=== PATIENT | male | born 1975 | race African-American/Black ===

== ENCOUNTER 2017-01-10 17:15 | Emergency (ER) | payer BC, OTHER ==
--- NOTE | 2017-01-10 18:25 | EDM.PDOC ---
ED HPI RENAL/ - General Chief Complaint: Genitourinary Problem Stated Complaint: UNKNOWN Time Seen by Provider: 01/10/17 18:25 Source of Information: Reports: Patient History Limitations: Reports: No limitations - History of Present Illness INITIAL COMMENTS - FREE TEXT/NARRATIVE: History of present illness: [41-year-old male presenting with complaints and concerns of discomfort with urination and suspicion that he has Trichomonas area patient requesting to be tested for same] Review of systems: As per history of present illness and below otherwise all systems reviewed and negative. Past medical history: As per history of present illness and as reviewed below otherwise noncontributory. Surgical history: As per history of present illness and as reviewed below otherwise noncontributory. Social history: No reported history of drug or alcohol abuse. Family history: As per history of present illness and as reviewed below otherwise noncontributory. Physical exam: HEENT: Atraumatic, normocephalic, pupils reactive, negative for conjunctival pallor or scleral icterus, mucous membranes moist, throat clear, neck supple, nontender, trachea midline. Lungs: Clear to auscultation, breath sounds equal bilaterally, chest nontender. Heart: S1S2, regular, negative for clicks, rubs, or JVD. Abdomen: Soft, nondistended, nontender. Negative for masses or hepatosplenomegaly. Negative for costovertebral tenderness. Pelvis: Stable nontender. Genitourinary: Deferred. Rectal: Deferred. Extremities: Atraumatic, negative for cords or calf pain. Neurovascular unremarkable. Neuro: Awake, alert, oriented. Cranial nerves II through XII unremarkable. Cerebellum unremarkable. Motor and sensory unremarkable throughout. Exam nonfocal. Global assessment was benign save description of some burning and discharge from penis. Diagnostics: [UA both clean and dirty] Therapeutics: [2 g Zithromax] Impression: [Partner with positive trich treated and apparently] Plan: [Treated here followup with PCP] Definitive disposition and diagnosis as appropriate pending reevaluation and review of above. - Related Data Allergies/ADRs: Allergies Allergy/AdvReac Type Severity Reaction Status Date / Time No Known Allergies Allergy Verified 01/10/17 18:06 Home Meds: Home Meds Naproxen [Naprosyn] 1 tab PO DAILY 01/10/17 [History] Past Medical History - Past Health History Medical/Surgical History: Denies Medical/Surgical History Cardiovascular History: Reports: Other (see below) Other Cardiovascular History: "fluid on heart" - Infectious Disease History Infectious Disease History: Reports: Chicken pox Social & Family History - Family History Family Medical History: Noncontributory - Tobacco Use Smoking Status *Q: Current Every Day Smoker Years of Tobacco use: 10 Packs/Tins Daily: 0.5 - Recreational Drug Use Recreational Drug Use: No ED ROS GENERAL - Review of Systems Review Of Systems: See Below (See history of present illness) ED EXAM, RENAL/ - Physical Exam Exam: See Below (History of present illness) Course - Vital Signs Last Recorded V/S: Last Vital Signs Temp 37.1 C 01/10/17 18:04 Pulse 92 01/10/17 18:04 Resp 18 01/10/17 18:04 BP 131/80 01/10/17 18:04 Pulse Ox 99 01/10/17 18:04 - Orders/Labs/Meds Orders: Active Orders 24 hr Category Date Time Status CHLAMYDIA TRACHOMATIS/GC AMPLF Stat Lab 01/10/17 18:35 Received UA W/MICROSCOPIC [URIN] Stat Lab 01/10/17 17:44 Ordered Azithromycin [Zithromax] Med 01/10/17 21:15 Once 2,000 mg PO ONETIME ONE Departure - Departure Time of Disposition: 21:08 Disposition: Home, Self-Care 01 Condition: good Clinical Impression: Exposure to STD Forms: ED Department Discharge Additional Instructions: The following information is given to patients seen in the emergency department who are being discharged to home. This information is to outline your options for follow-up care. We provide all patients seen in our emergency department with a follow-up referral. The need for follow-up, as well as the timing and circumstances, are variable depending upon the specifics of your emergency department visit. If you don't have a primary care physician on staff, we will provide you with a referral. We always advise you to contact your personal physician following an emergency department visit to inform them of the circumstance of the visit and for follow-up with them and/or the need for any referrals to a consulting specialist. The emergency department will also refer you to a specialist when appropriate. This referral assures that you have the opportunity for follow-up care with a specialist. All of these measure are taken in an effort to provide you with optimal care, which includes your follow-up. Under all circumstances we always encourage you to contact your private physician who remains a resource for coordinating your care. When calling for follow-up care, please make the office aware that this follow-up is from your recent emergency room visit. If for any reason you are refused follow-up, please contact the [facility] Emergency Department at and asked to speak to the emergency department charge nurse. Followup with PCP 1-2 days Return to ED as needed as discussed - My Orders Last 24 Hours: My Active Orders 01/10/17 17:44 UA W/MICROSCOPIC [URIN] Stat 01/10/17 18:35 CHLAMYDIA TRACHOMATIS/GC AMPLF Stat 01/10/17 21:15 Azithromycin [Zithromax] 2,000 mg PO ONETIME ONE - Assessment/Plan Last 24 Hours: My Active Orders 01/10/17 17:44 UA W/MICROSCOPIC [URIN] Stat 01/10/17 18:35 CHLAMYDIA TRACHOMATIS/GC AMPLF Stat 01/10/17 21:15 Azithromycin [Zithromax] 2,000 mg PO ONETIME ONE
[2017-01-10] MEDS ORDERED: Azithromycin 250 MG Tab PO STA (21:13)
[2017-01-10] MEDS ORDERED: Azithromycin 250 MG Tab PO ONE (21:15)
[2017-01-10 21:26] VITALS: BP 139/83
== END 2017-01-10 21:22 | disposition home or self-care (01) ==
LOC: MW.ED 17:15 → MERGE 17:15 → MW.ED 21:22
DX: Z20.2 Contact with and (suspected) exposure to infections with a predominantly sexual mode of transmission (principal); Z79.899 Other long term (current) drug therapy; F17.210 Nicotine dependence, cigarettes, uncomplicated
CPT/HCPCS: 81001; 87491; 87591; 99283; A9270

== ENCOUNTER 2017-03-13 06:09 | Emergency (ER) | payer BC ==
--- NOTE | 2017-03-13 07:07 | EDM.PDOC ---
ED HPI GENERAL MEDICAL PROBLEM - General Chief Complaint: Back Pain or Injury Stated Complaint: BACK PAIN Time Seen by Provider: 03/13/17 07:03 Source of Information: Reports: Patient - History of Present Illness INITIAL COMMENTS - FREE TEXT/NARRATIVE: HISTORY AND PHYSICAL: History of present illness: [] Patient was with low back pain. 7?10 and nonradiating, pain noted on awakening he states that he feels he may have slept wrong He has a history of paraspinous muscle spasm in the past is not dealt with this for nearly a year he does not attribute any new injury or heavy lifting No fever nausea vomiting chills sweats no footdrop or saddle anesthesia bowel or urine symptoms Review of systems: As per history of present illness and below otherwise all systems reviewed and negative. Past medical history: As per history of present illness and as reviewed below otherwise noncontributory. Surgical history: As per history of present illness and as reviewed below otherwise noncontributory. Social history: No reported history of drug or alcohol abuse. Family history: As per history of present illness and as reviewed below otherwise noncontributory. Physical exam: HEENT: Atraumatic, normocephalic, pupils reactive, negative for conjunctival pallor or scleral icterus, mucous membranes moist, throat clear, neck supple, nontender, trachea midline. Lungs: Clear to auscultation, breath sounds equal bilaterally, chest nontender. Heart: S1S2, regular, negative for clicks, rubs, or JVD. Abdomen: Soft, nondistended, nontender. Negative for masses or hepatosplenomegaly. Negative for costovertebral tenderness. Pelvis: Stable nontender. Genitourinary: Deferred. Rectal: Deferred. Extremities: Atraumatic, negative for cords or calf pain. Neurovascular unremarkable. Her leg raise to 30 without radiculopathy Neuro: Awake, alert, oriented. Cranial nerves II through XII unremarkable. Cerebellum unremarkable. Motor and sensory unremarkable throughout. Exam nonfocal. No footdrop or saddle anesthesia Diagnostics: [] Lumbar spine 2-3 Therapeutics: [] Toradol 60 IM Cataflam Flexeril Impression: [] Back pain Paraspinous muscle spasm Definitive disposition and diagnosis as appropriate pending reevaluation and review of above. Left Low Back Pain Score (Numeric/FACES): 8 - Related Data Allergies Allergy/AdvReac Type Severity Reaction Status Date / Time No Known Allergies Allergy Verified 03/13/17 06:30 Home Meds: Home Meds . [No Known Home Meds] 03/13/17 [History] Past Medical History - Past Health History Medical/Surgical History: Denies Medical/Surgical History HEENT History: Reports: None Cardiovascular History: Reports: Hypertension, Other (See Below) Other Cardiovascular History: "fluid on heart" Respiratory History: Reports: None Gastrointestinal History: Reports: None Genitourinary History: Reports: None Musculoskeletal History: Reports: Back Pain, Chronic Neurological History: Reports: None Psychiatric History: Reports: None Endocrine/Metabolic History: Reports: None Hematologic History: Reports: None Immunologic History: Reports: None Oncologic (Cancer) History: Reports: None Dermatologic History: Reports: None - Infectious Disease History Infectious Disease History: Reports: Chicken Pox Other Infectious Disease History: childhood - Past Surgical History Head Surgeries/Procedures: Reports: None Social & Family History - Family History Family Medical History: Noncontributory Cardiac: Reports: Hypertension Endocrine/Metabolic: Reports: Diabetes, Type I - Tobacco Use Smoking Status *Q: Current Every Day Smoker Years of Tobacco use: 8 Packs/Tins Daily: 1 Used Tobacco, but Quit: Yes Month Tobacco Last Used: 2012 Second Hand Smoke Exposure: No - Caffeine Use Caffeine Use: Reports: Coffee, Soda - Alcohol Use Days Per Week of Alcohol Use: 2 Number of Drinks Per Day: 1 Total Drinks Per Week: 2 - Recreational Drug Use Recreational Drug Use: No ED ROS GENERAL - Review of Systems Review Of Systems: ROS reveals no pertinent complaints other than HPI. ED EXAM, GENERAL - Physical Exam Exam: See Below Course - Vital Signs Last Recorded V/S: Last Vital Signs Temp 36.1 C 03/13/17 06:15 Pulse 77 03/13/17 06:15 Resp 18 03/13/17 06:15 BP 135/82 03/13/17 06:15 Pulse Ox 100 03/13/17 06:15 - Orders/Labs/Meds Orders: Active Orders 24 hr Category Date Time Status Lumbar Spine 2 or 3V [CR] Stat Exams 03/13/17 07:10 Taken Meds: Medications Discontinued Medications Generic Name Dose Route Start Last Admin Trade Name Freq PRN Reason Stop Dose Admin Ketorolac Tromethamine 30 mg 03/13/17 07:10 Toradol IVPUSH 03/13/17 07:11 ONETIME ONE Ketorolac Tromethamine 60 mg 03/13/17 07:14 03/13/17 07:18 Toradol IM 03/13/17 07:15 60 mg ONETIME ONE Administration Departure - Departure Time of Disposition: 08:05 Disposition: Home, Self-Care 01 Condition: good Clinical Impression: Spasm of lumbar paraspinous muscle, Degenerative disc disease - Discharge Information Forms: ED Department Discharge Additional Instructions: Medication as prescribed Return if symptoms persist or worsen Ice 20 minute intervals 3 times daily for the first 48 hours, he may benefit thereafter Followup with primary care in 2 weeks The following information is given to patients seen in the emergency department who are being discharged to home. This information is to outline your options for follow-up care. We provide all patients seen in our emergency department with a follow-up referral. The need for follow-up, as well as the timing and circumstances, are variable depending upon the specifics of your emergency department visit. If you don't have a primary care physician on staff, we will provide you with a referral. We always advise you to contact your personal physician following an emergency department visit to inform them of the circumstance of the visit and for follow-up with them and/or the need for any referrals to a consulting specialist. The emergency department will also refer you to a specialist when appropriate. This referral assures that you have the opportunity for follow-up care with a specialist. All of these measure are taken in an effort to provide you with optimal care, which includes your follow-up. Under all circumstances we always encourage you to contact your private physician who remains a resource for coordinating your care. When calling for follow-up care, please make the office aware that this follow-up is from your recent emergency room visit. If for any reason you are refused follow-up, please contact the [facility] emergency department at and asked to speak to the emergency department charge nurse. - My Orders Last 24 Hours: My Active Orders 03/13/17 07:10 Lumbar Spine 2 or 3V [CR] Stat - Assessment/Plan Last 24 Hours: My Active Orders 03/13/17 07:10 Lumbar Spine 2 or 3V [CR] Stat
[2017-03-13] MEDS ORDERED: Ketorolac 30 MG/ML SDV IVPUSH ONE (07:10)
[2017-03-13] MEDS ORDERED: Ketorolac 60 MG/2 ML SDV IM ONE (07:14)
[2017-03-13 08:34] VITALS: BP 134/78
--- NOTE | 2017-03-13 14:54 | CR ---
EXAM DATE: 03/13/17 PATIENT'S AGE: 41 Patient: EVA CONNER Facility: [place], [place] Site . Site : [id number] Study: XRay Spine Lumbar [id number]/30/2017 7:47:57 AM Ordering Physician: Jose Menendez Final Report: Lumbar spine 2 VIEWS INDICATION: Pain. IMPRESSION: Multilevel disc space narrowing is present. A vacuum disc is present at L2-L3. Early spondylosis deformans. Curvature is present which is convex to the right. Moderate hypertrophic changes in the lumbar facets. No compression fractures are suggested. No significant change. Comparison: 08/22/2016. Dictated by Mani Costello MD @ Mar 13 2017 7:58AM (Electronic Signature) Report Signed by Proxy. [facility] HE[facility] CENTERLloyd
== END 2017-03-13 08:26 | disposition home or self-care (01) ==
LOC: MW.ED 06:09
DX: M62.830 Muscle spasm of back (principal); M51.36 Other intervertebral disc degeneration, lumbar region; F17.210 Nicotine dependence, cigarettes, uncomplicated
CPT/HCPCS: 72100; 96372; 99283; J1885

== ENCOUNTER 2017-12-04 09:46 | Emergency (ER) | payer BC ==
[2017-12-04] MEDS ORDERED: Aspirin 81 MG Tab.Chew PO ONE (09:50)
[2017-12-04] MEDS ORDERED: Sodium Chloride 0.9% 1,000 ML IV ONE (09:50)
[2017-12-04] MEDS ORDERED: Alum Hydrox/Mag Hydrox/Simeth 15 ML, Metoclopramide 5 MG, Lidocaine 2% 5 ML PO ONE ×3 (09:55)
[2017-12-04 10:30] LABS: CHLORIDE,CL 107 mmol/L (98-110); SODIUM,NA 140 mmol/L (136-146)
--- NOTE | 2017-12-04 10:42 | CR ---
EXAMINATION: Portable chest radiograph. HISTORY: Pain. Comparison: 11/04/2016 FINDINGS: The trachea is midline. The cardiomediastinal silhouette is within normal limits. No pulmonary infilt rates, effusions or pneumothorax. Osseous structures appear unremarkable. IMPRESSION: No acute cardiopulmonary process.
[2017-12-04] MEDS ORDERED: Ketorolac 60 MG/2 ML SDV IM ONE (11:28)
[2017-12-04] MEDS ORDERED: Ketorolac 30 MG/ML SDV IVPUSH ONE (11:30)
--- NOTE | 2017-12-04 11:31 | EDM.PDOC ---
ED HPI GENERAL MEDICAL PROBLEM - General Chief Complaint: Chest Pain Stated Complaint: chest pain Time Seen by Provider: 12/04/17 10:30 Source of Information: Reports: Patient History Limitations: Reports: No Limitations - History of Present Illness INITIAL COMMENTS - FREE TEXT/NARRATIVE: Presents to the ER reporting chest pain; patient states he's had for about 3 days and points to an area above the nipple on the left. He denies respiratory symptoms such as cough, runny nose, sore throat or fever. He denies nausea, shortness of breath or sweating. He has no history of cardiac problems except at one time he had an irregular heartbeat. He states that lifting or working makes it worse. The pain tends to come and go. He denies acid reflux or history thereof. No known injury. chest Pain Score (Numeric/FACES): 8 - Related Data Allergies Allergy/AdvReac Type Severity Reaction Status Date / Time No Known Allergies Allergy Verified 12/04/17 09:48 Home Meds: Home Meds . [No Known Home Meds] 03/13/17 [History] Past Medical History - Past Health History Medical/Surgical History: Denies Medical/Surgical History HEENT History: Reports: None Cardiovascular History: Reports: Hypertension, Other (See Below) Other Cardiovascular History: "fluid on heart" Respiratory History: Reports: None Gastrointestinal History: Reports: None Genitourinary History: Reports: None Musculoskeletal History: Reports: Back Pain, Chronic Neurological History: Reports: None Psychiatric History: Reports: None Endocrine/Metabolic History: Reports: None Hematologic History: Reports: None Immunologic History: Reports: None Oncologic (Cancer) History: Reports: None Dermatologic History: Reports: None - Infectious Disease History Infectious Disease History: Reports: Chicken Pox Other Infectious Disease History: childhood - Past Surgical History Head Surgeries/Procedures: Reports: None HEENT Surgical History: Reports: None Cardiovascular Surgical History: Reports: None Respiratory Surgical History: Reports: None GI Surgical History: Reports: None Musculoskeletal Surgical History: Reports: None Social & Family History - Family History Family Medical History: Noncontributory Cardiac: Reports: Hypertension Endocrine/Metabolic: Reports: Diabetes, Type I - Tobacco Use Smoking Status *Q: Current Every Day Smoker Years of Tobacco use: 10 Packs/Tins Daily: 1 Used Tobacco, but Quit: Yes Month Tobacco Last Used: 2012 Second Hand Smoke Exposure: No - Caffeine Use Caffeine Use: Reports: Coffee - Alcohol Use Days Per Week of Alcohol Use: 2 Number of Drinks Per Day: 1 Total Drinks Per Week: 2 - Recreational Drug Use Recreational Drug Use: No ED ROS GENERAL - Review of Systems Review Of Systems: ROS reveals no pertinent complaints other than HPI. ED EXAM, GENERAL - Physical Exam Exam: See Below Exam Limited By: No Limitations General Appearance: Alert, No Apparent Distress Ears: Normal External Exam, Normal TMs Nose: Normal Inspection Throat/Mouth: Normal Inspection, Normal Oropharynx Head: Atraumatic, Normocephalic Neck: Normal Inspection, Supple, Non-Tender, Full Range of Motion Respiratory/Chest: No Respiratory Distress, Lungs Clear, Normal Breath Sounds, Chest Non-Tender, Other (Spcific point pain between the LSB and MCL at 3 ICS ) Cardiovascular: Normal Peripheral Pulses, Regular Rate, Rhythm, No Edema, No Murmur GI/Abdominal: Soft, Non-Tender Extremities: Normal Inspection, Normal Range of Motion Neurological: Alert, Oriented Psychiatric: Normal Affect, Normal Mood Skin Exam: Warm, Dry, Normal Color, No Rash Lymphatic: No Adenopathy Course - Vital Signs Last Recorded V/S: Last Vital Signs Temp 35.3 C 12/04/17 09:48 Pulse 73 12/04/17 09:48 Resp 18 12/04/17 09:48 BP 145/80 H 12/04/17 09:48 Pulse Ox 100 12/04/17 09:48 - Orders/Labs/Meds Orders: Active Orders 24 hr Category Date Time Status EKG Documentation Completion [RC] STAT Care 12/04/17 09:50 Active UA W/MICROSCOPIC [URIN] Stat Lab 12/04/17 09:50 Ordered Labs: Laboratory Tests 12/04/17 12/04/17 Range/Units 09:50 09:50 WBC 6.48 (4.0-11.0) K/uL RBC 5.11 (4.50-5.90) M/uL Hgb 13.8 (13.0-17.0) g/dL Hct 42.0 (38.0-50.0) % MCV 82.2 (80.0-98.0) fL MCH 27.0 (27.0-32.0) pg MCHC 32.9 (31.0-37.0) g/dL RDW Std Deviation 63.0 H (28.0-62.0) fl RDW Coeff of [place] 21 H (11.0-15.0) % Plt Count 143 L (150-400) K/uL Neut % (Auto) 70.2 (48.0-80.0) % Lymph % (Auto) 19.0 (16.0-40.0) % [place] % (Auto) 9.0 (0.0-15.0) % Eos % (Auto) 1.5 (0.0-7.0) % Baso % (Auto) 0.3 (0.0-1.5) % Neut # (Auto) 4.6 (1.4-5.7) K/uL Lymph # (Auto) 1.2 (0.6-2.4) K/uL [place] # (Auto) 0.6 (0.0-0.8) K/uL Eos # (Auto) 0.1 (0.0-0.7) K/uL Baso # (Auto) 0.0 (0.0-0.1) K/uL Nucleated RBC % 0.0 /100WBC Nucleated RBCs # 0 K/uL Sodium 140 (136-146) mmol/L Potassium 4.1 (3.5-5.1) mmol/L Chloride 107 (98-110) mmol/L Carbon Dioxide 24 (21-31) mmol/L BUN 19 (6.0-23.0) mg/dL Creatinine 1.2 (0.6-1.5) mg/dL Est Cr Clr Drug Dosing 111.11 mL/min Estimated GFR (MDRD) > 60.0 ml/min Glucose 75 (60-110) mg/dL Calcium 9.2 (8.8-10.8) mg/dL Total Bilirubin 0.9 (0.1-1.5) mg/dL AST 24 (5-40) IU/L ALT 25 (8-54) IU/L Alkaline Phosphatase 83 (40-150) Creatine Kinase 473 H (9-236) IU/L CK-MB (CK-2) 4.8 (0-6.6) ng/ml Troponin I < 0.10 (0.0-0.29) NG/ML Total Protein 7.4 (6.0-8.0) g/dL Albumin 4.5 (3.5-5.0) g/dL Globulin 2.9 (2.0-3.5) g/dL Albumin/Globulin Ratio 1.6 (1.3-2.8) Amylase 55 (10-90) U/L Lipase 17 (7-80) U/L Meds: Medications Discontinued Medications Generic Name Dose Route Start Last Admin Trade Name Lázaroq PRN Reason Stop Dose Admin Aspirin 324 mg 12/04/17 09:50 12/04/17 09:56 Aspirin PO 12/04/17 09:51 324 mg ONETIME ONE Administration Al Hydroxide/Mg Hydroxide 15 0 ml 12/04/17 09:55 12/04/17 10:13 ml/ Metoclopramide HCl 5 mg/ PO 12/04/17 09:56 1 each Lidocaine HCl 5 ml ONETIME ONE Administration Sodium Chloride 1,000 mls @ 999 mls/hr 12/04/17 09:50 12/04/17 09:56 Normal Saline IV 12/04/17 10:50 999 mls/hr STAT ONE Administration Departure - Departure Time of Disposition: 11:31 Disposition: Home, Self-Care 01 Condition: Good Clinical Impression: Costal chondritis Referrals: PCP,Unknown [Primary Care Provider] - [facility] [Outside] [facility] [Outside] Additional Instructions: 1. Warm packs to left chest 20 minutes every 3-4 hours. 2. NSAIDS such as Aleve 2 tabs twice daily or Ibuprofen 2-3 tabs three times daily. 3. Follow up in the clinic for re-evaluation with continuing symptoms. Return promptly for chest pain especially accompanied by shortness of breath, nausea, lightheadedness and sweating.
[2017-12-04] MEDS ORDERED: Ketorolac 30 MG/ML SDV ONE (11:32)
[2017-12-04 11:58] VITALS: BP 151/101
== END 2017-12-04 11:55 | disposition home or self-care (01) ==
LOC: MW.ED 09:46
DX: M94.0 Chondrocostal junction syndrome [Tietze] (principal); I10 Essential (primary) hypertension; F17.210 Nicotine dependence, cigarettes, uncomplicated
CPT/HCPCS: 71045; 80053; 81001; 82150; 82550; 82553; 83690; 84484; 85025; 93005; 96361; 96374; 99285; A9270; J1885; J7040; 99283

== ENCOUNTER 2018-03-20 08:48 | Emergency (ER) | payer SELFPAY ==
--- NOTE | 2018-03-20 09:05 | EDM.PDOC ---
ED HPI GENERAL MEDICAL PROBLEM - General Chief Complaint: Back Pain or Injury Stated Complaint: BACK PAIN Time Seen by Provider: 03/20/18 09:02 - History of Present Illness INITIAL COMMENTS - FREE TEXT/NARRATIVE: HISTORY AND PHYSICAL: History of present illness: Patient 42-year-old black male history of chronic intermittent back pains been seen multiple times in the emergency department for this in the past. He does not have a local physician and states he was not given referral the past. He denies numbness weakness incontinence or retention bowel or bladder Review of systems: As per history of present illness and below otherwise all systems reviewed and negative. Past medical history: As per history of present illness and as reviewed below otherwise noncontributory. Surgical history: As per history of present illness and as reviewed below otherwise noncontributory. Social history: No reported history of drug or alcohol abuse. Family history: As per history of present illness and as reviewed below otherwise noncontributory. Physical exam: HEENT: Atraumatic, normocephalic, pupils reactive, negative for conjunctival pallor or scleral icterus, mucous membranes moist, throat clear, neck supple, nontender, trachea midline. Lungs: Clear to auscultation, breath sounds equal bilaterally, chest nontender. Heart: S1S2, regular, negative for clicks, rubs, or JVD. Abdomen: Soft, nondistended, nontender. Negative for masses or hepatosplenomegaly. Negative for costovertebral tenderness. Pelvis: Stable nontender. Genitourinary: Deferred. Rectal: Deferred. Extremities: Atraumatic, negative for cords or calf pain. Neurovascular unremarkable. Neuro: Awake, alert, oriented. Cranial nerves II through XII unremarkable. Cerebellum unremarkable. Motor and sensory unremarkable throughout. Exam nonfocal. Back: Patient per vertebral tenderness in the lumbar region no vertebral body or point tenderness patient is able to stand on his toes back on his heels motor and sensory are normal Diagnostics: None Therapeutics: None Impression: #1 chronic intermittent low back Definitive disposition and diagnosis as appropriate pending reevaluation and review of above. - Related Data Allergies Allergy/AdvReac Type Severity Reaction Status Date / Time No Known Allergies Allergy Verified 03/20/18 09:02 Home Meds: Home Meds . [No Known Home Meds] 03/13/17 [History] Past Medical History - Past Health History Medical/Surgical History: Denies Medical/Surgical History HEENT History: Reports: None Cardiovascular History: Reports: Hypertension, Other (See Below) Other Cardiovascular History: "fluid on heart" Respiratory History: Reports: None Gastrointestinal History: Reports: None Genitourinary History: Reports: None Musculoskeletal History: Reports: Back Pain, Chronic Neurological History: Reports: None Psychiatric History: Reports: None Endocrine/Metabolic History: Reports: None Hematologic History: Reports: None Immunologic History: Reports: None Oncologic (Cancer) History: Reports: None Dermatologic History: Reports: None - Infectious Disease History Infectious Disease History: Reports: Chicken Pox Other Infectious Disease History: childhood - Past Surgical History Head Surgeries/Procedures: Reports: None HEENT Surgical History: Reports: None Cardiovascular Surgical History: Reports: None Respiratory Surgical History: Reports: None GI Surgical History: Reports: None Musculoskeletal Surgical History: Reports: None Social & Family History - Family History Family Medical History: Noncontributory Cardiac: Reports: Hypertension Endocrine/Metabolic: Reports: Diabetes, Type I - Caffeine Use Caffeine Use: Reports: Coffee ED ROS GENERAL - Review of Systems Review Of Systems: ROS reveals no pertinent complaints other than HPI. ED EXAM, GENERAL - Physical Exam Exam: See Below (See dictation) Departure - Departure Time of Disposition: 09:04 Disposition: Home, Self-Care 01 Condition: Good Clinical Impression: Chronic back pain - Discharge Information Referrals: PCP,None [Primary Care Provider] - Additional Instructions: The following information is given to patients seen in the emergency department who are being discharged to home. This information is to outline your options for follow-up care. We provide all patients seen in our emergency department with a follow-up referral. The need for follow-up, as well as the timing and circumstances, are variable depending upon the specifics of your emergency department visit. If you don't have a primary care physician on staff, we will provide you with a referral. We always advise you to contact your personal physician following an emergency department visit to inform them of the circumstance of the visit and for follow-up with them and/or the need for any referrals to a consulting specialist. The emergency department will also refer you to a specialist when appropriate. This referral assures that you have the opportunity for followup care with a specialist. All of these measure are taken in an effort to provide you with optimal care, which includes your followup. Under all circumstances we always encourage you to contact your private physician who remains a resource for coordinating your care. When calling for followup care, please make the office aware that this follow-up is from your recent emergency room visit. If for any reason you are refused follow-up, please contact the [facility] emergency department at and asked to speak to the emergency department charge nurse. [facility] [address] [place] [id number] Anaprox Robaxin as prescribed follow-up clinic call above to schedule appointment return as needed as discussed
[2018-03-20 09:09] VITALS: BP 134/89
== END 2018-03-20 09:16 | disposition home or self-care (01) ==
LOC: MW.ED 08:48
DX: M54.5 Low back pain (principal); G89.29 Other chronic pain
CPT/HCPCS: 99282; 99283